=== PATIENT | female | born 1985 ===

== ENCOUNTER 2021-10-07 10:21 | Day surgery (SDC) | payer OTHER ==
[~2021-10-07 10:21] MED LIST: ADULT LOW DOSE81 M1 PO; EFFEXOR XR150 MG PO; NORGESTIMATE-E1 EACH PO; PLANQUENIL PO; SINGULAIR 10MG10 MG PO; ZYRTEC10 M3 PO
== END 2021-10-07 20:15 | disposition home or self-care (01) ==
LOC: CIR.AMB 10:21
PROVIDERS: ATTEND Obstetrics & Gynecology
DX: Z30.2 Encounter for sterilization (principal); N83.8 Other noninflammatory disorders of ovary, fallopian tube and broad ligament; Z30.432 Encounter for removal of intrauterine contraceptive device; Z91.013 Allergy to seafood; J45.909 Unspecified asthma, uncomplicated; Z79.82 Long term (current) use of aspirin